=== PATIENT | male | born 1990 | race Caucasian/White ===

== ENCOUNTER 2021-05-02 18:47 | Emergency (ER) | payer SELFPAY ==
[2021-05-02 20:26] VITALS: BP 132/81; PULSE 62; RESP 16; TEMP 36.6; O2SAT 98; BMI 30.2
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
[2021-05-02 22:01] VITALS: BP 135/64; PULSE 55; RESP 16; TEMP 36.6; O2SAT 98
== END 2021-05-02 22:14 | disposition home or self-care (01) ==
PROVIDERS: Emergency Provider Internal Medicine
DX: S61.012A Laceration without foreign body of left thumb without damage to nail, initial encounter (principal); M79.642 Pain in left hand; W26.0XXA Contact with knife, initial encounter; Y93.G3 Activity, cooking and baking; Y92.000 Kitchen of unspecified non-institutional (private) residence as the place of occurrence of the external cause; Y99.9 Unspecified external cause status
CPT/HCPCS: 12001; 99283

== ENCOUNTER 2021-05-16 09:23 | Emergency (ER) | payer OTHER, SELFPAY ==
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
[2021-05-16 09:59] VITALS: BP 134/84; PULSE 69; RESP 18; TEMP 36.3; O2SAT 99; BMI 30.2
--- NOTE | 2021-05-16 10:31 | PC.NURSE ---
PT EVALUATED BY CLAUDIA PADRON. SUTURES REMOVED BY PROVIDER. PT TOLERATED WITHOUT INCIDENT. +CMS. PT ABLE TO BEND AND EXTEND FINGER. EDUCATED IMPORTANCE ON COMPLETING ABX THERAPY
== END 2021-05-16 10:37 | disposition home or self-care (01) ==
PROVIDERS: Emergency Provider Emergency Medicine
DX: Z48.02 Encounter for removal of sutures (principal)
CPT/HCPCS: 99283

== ENCOUNTER 2024-02-09 21:01 | Emergency (ER) | payer SELFPAY ==
[2024-02-09 21:06] VITALS: BP 103/73; PULSE 89; RESP 20; TEMP 37.2; O2SAT 98; BMI 28.9
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
[2024-02-10 01:59] VITALS: BP 134/94; PULSE 72; RESP 18; TEMP 36.8; O2SAT 96
[2024-02-10] MEDS: Doxycycline Monohydrate 100 MG CAPSULE PO (02:44)
[2024-02-10] MEDS: cephALEXin 500 MG CAPSULE PO (02:44)
[2024-02-10 02:59] VITALS: BP 134/94; PULSE 72; RESP 18; TEMP 36.8; O2SAT 96
--- NOTE | 2024-02-10 03:00 | PC.NURSE ---
pt wounds cleaned with peroxide and dressed with xeroform. wound to right foot, right knee, and left forearm.
== END 2024-02-10 03:01 | disposition home or self-care (01) ==
PROVIDERS: Emergency Provider Internal Medicine
DX: S80.211A Abrasion, right knee, initial encounter (principal); S90.511A Abrasion, right ankle, initial encounter; S50.812A Abrasion of left forearm, initial encounter; V19.9XXA Pedal cyclist (driver) (passenger) injured in unspecified traffic accident, initial encounter; Y93.9 Activity, unspecified; Y92.9 Unspecified place or not applicable; Y99.9 Unspecified external cause status; L08.89 Other specified local infections of the skin and subcutaneous tissue
CPT/HCPCS: 99283